=== PATIENT | male | born 1945 | race Caucasian/White ===

== ENCOUNTER 2021-09-06 10:38 | Outpatient (RCR) | payer MEDICARE | END 2021-09-26 | disposition home or self-care (01) | LOC: ONC 10:38 | PROVIDERS: ATTEND Radiology Radiation Oncology | DX: C61 Malignant neoplasm of prostate (principal); K21.9 Gastro-esophageal reflux disease without esophagitis; I11.0 Hypertensive heart disease with heart failure; E78.00 Pure hypercholesterolemia, unspecified; E03.9 Hypothyroidism, unspecified | CPT/HCPCS: 99204 ==

== ENCOUNTER 2021-11-03 09:25 | Outpatient (RCR) | payer MEDICARE | END 2021-11-26 | disposition home or self-care (01) | LOC: ONC 09:25 | PROVIDERS: ATTEND Radiology Radiation Oncology | DX: Z51.0 Encounter for antineoplastic radiation therapy (principal); C61 Malignant neoplasm of prostate; K21.9 Gastro-esophageal reflux disease without esophagitis; I11.0 Hypertensive heart disease with heart failure; E78.00 Pure hypercholesterolemia, unspecified; E03.9 Hypothyroidism, unspecified | CPT/HCPCS: 77300; 77301; 77334; 77338 ==

== ENCOUNTER → 2021-12-27 | Outpatient (RCR) | payer MEDICARE | END | disposition home or self-care (01) | LOC: ONC 11-29 14:21 | PROVIDERS: ATTEND Radiology Radiation Oncology | DX: Z51.0 Encounter for antineoplastic radiation therapy (principal); C61 Malignant neoplasm of prostate | CPT/HCPCS: 77300; 77336; 77385 ==

== ENCOUNTER 2022-01-18 07:54 | Outpatient (RCR) | payer MEDICARE | END 2022-01-26 | disposition home or self-care (01) | LOC: ONC 07:54 | PROVIDERS: ATTEND Radiology Radiation Oncology | DX: Z51.0 Encounter for antineoplastic radiation therapy (principal); C61 Malignant neoplasm of prostate | CPT/HCPCS: 77385; G0463; 77336 ==

== ENCOUNTER 2022-03-10 10:50 | Outpatient (RCR) | payer MEDICARE | END 2022-03-29 | disposition home or self-care (01) | LOC: ONC 10:50 | PROVIDERS: ATTEND Radiology Radiation Oncology | DX: C61 Malignant neoplasm of prostate (principal) | CPT/HCPCS: 99213 ==